=== PATIENT | female | born 1980 | race Caucasian/White ===

== ENCOUNTER → 2019-05-08 | Outpatient (CLI) | payer OTHER ==
[2015-03-08 08:23] VITALS: BP 109/58
[~2019-05-08] MED LIST: BUTA1CAP29 PO; HYDR-2678 PO; SUMA50TA3 PO; VENL37.5 PO
--- NOTE | 2019-05-08 11:52 | KCIC ---
Bilateral diagnostic digital mammograms with 3-D tomosynthesis: Reason for examination: Right breast lump. Baseline exam. Bilateral mammograms in CC and oblique projections were obtained with 2-D imaging and 3-D tomosynthesis imaging on a Siemens Inspiration unit and reviewed on the workstation. Interpretation was made with the benefit of CAD. The skin and nipples show no abnormalities. No abnormal axillary lymph nodes are seen. Bilateral breast implants are present which show capsular calcification and contour deformity suggesting intracapsular ruptures bilaterally. The breast parenchyma shows scattered fatty and fibroglandular density. (Breast density: Category B.) There are no dominant masses, suspicious calcifications or architectural distortion. Impression: Changes bilaterally in the implants consistent with intracapsular rupture. No evidence of malignancy. Ultrasound to follow. BI-RAD Category 0: Incomplete. Needs additional imaging evaluation. Right breast ultrasound: Examination was performed with attention to the area of clinical concern and the axilla. Right breast implant is present but appears to show changes consistent with intracapsular rupture with capsular calcification present. There are no discrete cystic or solid nodules within the breast parenchyma. No abnormal appearing lymph nodes are seen in the axilla. IMPRESSION: Intracapsular rupture of the right breast implant. No parenchymal lesions seen. Recommend consultation with plastic surgery. Recommend routine mammographic follow-up. BI-RADS Category 2: Benign. "Our facility is accredited by the [employer] Mammography Program." This patient's information has been entered into a reminder system for the patient to be notified with the results of her examination and a target date for the next mammogram. Electronically signed by: Patt Costello MD (05/08/2019 11:49 AM) [id number]
== END | disposition home or self-care (01) ==
LOC: KCIC MAMMO 09:02
PROVIDERS: ATTEND Nurse Practitioner Family
DX: T85.898A Other specified complication of other internal prosthetic devices, implants and grafts, initial encounter (principal); Y83.8 Other surgical procedures as the cause of abnormal reaction of the patient, or of later complication, without mention of misadventure at the time of the procedure; Y92.89 Other specified places as the place of occurrence of the external cause; Z98.82 Breast implant status
CPT/HCPCS: 76641; 77066; G0279; 77062

== ENCOUNTER → 2019-10-29 | Outpatient (CLI) | payer OTHER ==
[2015-03-08 08:23] VITALS: BP 109/58
--- NOTE | 2019-10-29 17:10 | KCIC ---
CERVICAL SPINE 5V History: Cervical radiculopathy, lifting injury at work 4 weeks ago Comparison: None. Findings: 5 views of the cervical spine are submitted. Cervical vertebral body stature and AP alignment are maintained. There is mild reversal of the lordotic curvature centered near C4-5. Intervertebral disc spaces are maintained. Atlantoaxial distance is within normal limits. There is mild levoscoliosis centered near the cervicothoracic junction. There is adequate alignment of the lateral masses of C1 relative to C2. Occipital condylar-C1 articulation is obscured by overlying bone and teeth on the odontoid view as is the tip of the dens. No acute osseous abnormality is identified by radiographs. Impression: 1. No acute osseous abnormality is identified by radiographs. There is mild reversal of the lordotic curvature which could be positional although could be associated with spasm. Electronically signed by: Gerson Greenberg MD (10/29/2019 5:07 PM) [id number]
== END | disposition home or self-care (01) ==
LOC: KCIC 15:06
PROVIDERS: ATTEND Nurse Practitioner Family
DX: M41.83 Other forms of scoliosis, cervicothoracic region (principal); M54.12 Radiculopathy, cervical region
CPT/HCPCS: 72050